=== PATIENT | male | born 1975 | race Caucasian/White ===

== ENCOUNTER 2020-01-18 13:06 | Emergency (ER) | payer BC, OTHER ==
--- NOTE | 2020-01-18 13:32 | EDM.PDOC ---
ED HPI GENERAL MEDICAL PROBLEM - General Chief Complaint: Upper Extremity Injury/Pain Stated Complaint: LEFT HAND POINTER FINGER LACERATION Time Seen by Provider: 01/18/20 13:23 Source of Information: Reports: Patient, RN Notes Reviewed History Limitations: Reports: No Limitations - History of Present Illness INITIAL COMMENTS - FREE TEXT/NARRATIVE: Patient is a 44-year-old male who presents to the ED for the evaluation of a knuckle laceration. This is on his left hand, on the posterior surface over the MCP, roughly 1-1/2 cm, curvilinear. Not actively bleeding at time of triage, he states however when he did cut it, it did bleed quite profusely. He states that this happened while he was at work cleaning, he sliced it on a piece of sheet metal. He believes he is up-to-date on his tetanus thinks it was 5 years ago. He denies any numbness or tingling into his finger, and has no lack of range of motion. This is involving the MCP of the second digit of the left hand. Other than the above, he denies any sick symptoms, fever/chills, cough/shortness of breath, nausea/vomiting/diarrhea. Left Hand Pain Score (Numeric/FACES): 3 - Related Data Allergies Allergy/AdvReac Type Severity Reaction Status Date / Time morphine Allergy Nausea Verified 01/18/20 13:23 Home Meds: Home Meds . [No Known Home Meds] 04/06/14 [History] Past Medical History - Past Health History Medical/Surgical History: Denies Medical/Surgical History Review of Systems - Review of Systems Review Of Systems: Comprehensive ROS is negative, except as noted in HPI. ED EXAM, GENERAL - Physical Exam Exam: See Below Exam Limited By: No Limitations General Appearance: Alert, WD/WN, No Apparent Distress Respiratory/Chest: No Respiratory Distress, Lungs Clear, Normal Breath Sounds, No Accessory Muscle Use, Chest Non-Tender Cardiovascular: Normal Peripheral Pulses, Regular Rate, Rhythm, No Murmur Peripheral Pulses: 2+: Radial (L), Radial (R) Extremities: Normal Range of Motion, Normal Capillary Refill Neurological: Alert, Oriented, Normal Cognition, No Motor/Sensory Deficits Psychiatric: Normal Affect, Normal Mood Skin Exam: Warm, Dry, Normal Color, No Rash, Wound/Incision (1.5cm curvilinear wound to posterior aspect of 2nd digit MCP) ED TRAUMA EXTREMITY PROCEDURES - Laceration/Wound Repair Left Posterior Proximal Digit - 2nd (Index) Lac/Wound Length In cm: 1.5 Appearance: Superficial, Clean Distal NVT: Neuro & Vascular Intact, No Tendon Injury Anesthetic Type: Local Local Anesthesia - Lidocaine (Xylocaine): 1% Plain Local Anesthetic Volume: 2cc Skin Prep: Chlorhexidine (Hibiciens), Saline Exploration/Debridement/Repair: Wound Explored, In a Bloodless Field, Explored to Base, No Foreign Material Found Closed With: Sutures Suture Size: 4-0 # of Sutures: 4 Suture Type: Prolene, Interrupted, Simple Sterile Dressing Applied: Nurse Tetanus Status Addressed: Yes Complications: No Course - Vital Signs Last Recorded V/S: Last Vital Signs Temp 97.7 F 01/18/20 13:26 Pulse 82 01/18/20 13:26 Resp 16 01/18/20 13:26 BP 118/77 01/18/20 13:26 Pulse Ox 97 01/18/20 13:26 - Orders/Labs/Meds Meds: Medications Discontinued Medications Generic Name Dose Route Start Last Admin Trade Name Krystle PRN Reason Stop Dose Admin Lidocaine HCl 10 ml 01/18/20 13:40 01/18/20 14:01 Xylocaine 1% INJECT 01/18/20 13:41 10 ml ONETIME ONE Administration Departure - Departure Time of Disposition: 13:40 Disposition: Home, Self-Care 01 Condition: Good Clinical Impression: Laceration of hand Qualifiers: Encounter type: initial encounter Foreign body presence: without foreign body Laterality: left Qualified Code(s): S61.412A - Laceration without foreign body of left hand, initial encounter - Discharge Information *PRESCRIPTION DRUG MONITORING PROGRAM REVIEWED*: No *COPY OF PRESCRIPTION DRUG MONITORING REPORT IN PATIENT [place]: No Instructions: Sutured Wound Care, [id number] Referrals: PCP,None [Primary Care Provider] - Forms: ED Department Discharge Additional Instructions: You have been evaluated in the ED for your laceration. Sutures will need to stay in for 10-14 days. You may return to the ED or any clinic for removal. Please keep this area clean and dry, you may cleanse with regular soap and water. No vigorous scrubbing. Please try to avoid submerging the affected area in water for prolonged periods of time until the sutures are removed. Watch out for signs of infection like increased redness, swelling, pain at the laceration site, or if you should develop any fevers or chills. Please return to ED if your symptoms change or worsen. Sepsis Event Note (ED) - Evaluation Sepsis Screening Result: No Definite Risk - Focused Exam Vital Signs: Vital Signs Temp Pulse Resp BP Pulse Ox 01/18/20 13:26 97.7 F 82 16 118/77 97
[2020-01-18] MEDS ORDERED: Lidocaine 1% 10 ML MDV INJECT ONE (13:40)
== END 2020-01-18 14:35 | disposition home or self-care (01) ==
LOC: JD.ED 13:06
DX: S61.412A Laceration without foreign body of left hand, initial encounter (principal); Z88.5 Allergy status to narcotic agent; W26.8XXA Contact with other sharp object(s), not elsewhere classified, initial encounter; Y99.0 Civilian activity done for income or pay
CPT/HCPCS: 12001; 99282; J2001